=== PATIENT | female | born 1950 | race Caucasian/White ===

== ENCOUNTER → 2016-10-30 | Outpatient (REF) | payer OTHER ==
[~2016-10-30] MED LIST: /GLIP10TAB PO; ANTI12.5 PO; CARD8TAB2 PO; DOXA8TAB PO; FENO145T PO; LEVO150T6 PO; LOSA100T PO; METF1000 PO; TYLE325T5 PO
[2016-10-30 12:07] LABS: ALBUMIN 3.7 GM/DL (3.2-5.2); ALBUMIN/GLOBULIN RATIO 1.23 (1.00-1.93); ALKALINE PHOSPHATASE 56 U/L (45-117); ALT/SGPT 51 U/L (12-78); ANION GAP 9 MEQ/L (8-16); AST/SGOT 30 U/L (15-37); BILIRUBIN,TOTAL 0.3 MG/DL (0.2-1.0); BLOOD UREA NITROGEN 21 MG/DL (7-18); CALCIUM LEVEL 9.5 MG/DL (8.8-10.2); CARBON DIOXIDE LEVEL 28 MEQ/L (21-32); CHLORIDE LEVEL 105 MEQ/L (98-107); CHOLESTEROL LEVEL 198 MG/DL (<200); GLOMERULAR FILTRATION RATE > 60.0 (>45); GLUCOSE, FASTING 106 MG/DL (80-110); POTASSIUM SERUM 4.4 MEQ/L (3.5-5.1); SODIUM LEVEL 142 MEQ/L (136-145); TOTAL PROTEIN 6.7 GM/DL (6.4-8.2); TRIGLYCERIDES LEVEL 255 MG/DL (<150)
== END ==
LOC: M SFHCPLAZ 09:00
PROVIDERS: ATTEND Family Medicine
DX: E11.36 Type 2 diabetes mellitus with diabetic cataract (principal)

== ENCOUNTER → 2017-02-17 | Outpatient (REF) | payer MEDICARE | LOC: M SFHCPLAZ 08:34 | PROVIDERS: ATTEND Family Medicine | DX: E11.9 Type 2 diabetes mellitus without complications (principal) ==

== ENCOUNTER → 2017-04-15 | Outpatient (REF) | payer MEDICARE | LOC: M SFHCWAGY 10:11 | PROVIDERS: ATTEND Nurse Practitioner Family | DX: Z12.4 Encounter for screening for malignant neoplasm of cervix (principal); R87.622 Low grade squamous intraepithelial lesion on cytologic smear of vagina (LGSIL) ==

== ENCOUNTER → 2017-04-15 | Outpatient (CLI) | payer MEDICARE ==
--- NOTE | 2017-04-15 12:56 | REPMRS ---
Patient History The patient states she had a clinical breast exam in 05/01 Patient is postmenopausal and has history of cervical cancer at age 22. Family history of breast cancer in mother at age 50 or over and breast cancer in maternal grandmother at age 50 or over. Digital Woman Screen Mammo: April 15, 2017 - Exam #: [id number] Bilateral MLO and CC view(s) were taken. CV view(s) were taken of the right breast. Technologist: Korin Thompson, Technologist Prior study comparison: October 19, 2015, digital woman screen mammo performed at [facility]. July 31, 2012, digital woman screen mammo performed at [facility] [employer] [facility]. FINDINGS: The breast tissue is almost entirely fat. There has been no change in the appearance of the mammogram from the prior studies. There is no interval development of dominant mass, areas of architectural distortion, or clustered microcalcification typical of malignancy. Large coarse benign appearing calcifications are present. Scattered lymph nodes are seen in the axilla. ASSESSMENT: BI-RADS/ACR category 2 mammogram. Benign finding(s). Recommendation Routine screening mammogram in 1 year (for women over age 40). This mammogram was interpreted with the aid of an FDA-approved computer-aided dectection system. A. Negative x-ray reports should not delay biopsy if a dominant or clinically suspicious mass is present. B. Four to eight percent of cancers are not identified by mammography. C. Adenosis and dense breast may obscure an underlying neoplasm. Electronically Signed By: Damian Aranda MD 04/15/17 1541
== END ==
LOC: M WHC 09:36
PROVIDERS: ATTEND Nurse Practitioner Family
DX: Z12.31 Encounter for screening mammogram for malignant neoplasm of breast (principal); Z78.0 Asymptomatic menopausal state; Z12.4 Encounter for screening for malignant neoplasm of cervix; R87.622 Low grade squamous intraepithelial lesion on cytologic smear of vagina (LGSIL); Z85.41 Personal history of malignant neoplasm of cervix uteri; Z80.3 Family history of malignant neoplasm of breast
CPT/HCPCS: 87624; G0123; G0202

== ENCOUNTER → 2017-04-25 | Outpatient (REF) | payer MEDICARE | LOC: M SFHCWAGY 15:54 | PROVIDERS: ATTEND Nurse Practitioner Women's Health | DX: R87.613 High grade squamous intraepithelial lesion on cytologic smear of cervix (HGSIL) (principal); R87.612 Low grade squamous intraepithelial lesion on cytologic smear of cervix (LGSIL); Z87.898 Personal history of other specified conditions ==

== ENCOUNTER → 2017-05-26 | Outpatient (REF) | payer MEDICARE ==
[2017-05-26 11:55] LABS: BASO % 0.6 % (0.0-1.0); EOS # 0.5 K/mm3 (0.0-0.50); EOS % 5.6 % (0.0-3.0); LARGE UNSTAINED CELL # 0.1 K/mm3 (0.0-0.4); LARGE UNSTAINED CELL % 1.5 % (0.0-4.0); LYMPH # 2.8 K/mm3 (1.5-4.5); LYMPH % 32.6 % (24.0-44.0); MEAN CORPUSCULAR HEMOGLOBIN 30.5 pg (27.0-33.0); MEAN CORPUSCULAR HGB CONC 33.5 g/dl (32.0-36.5); MEAN CORPUSCULAR VOLUME 91.1 fl (80.0-96.0); MONO # 0.3 K/mm3 (0.0-0.8); MONO % 3.9 % (0.0-5.0); NEUTROPHILS # 4.8 K/mm3 (1.8-7.7); NEUTROPHILS % 55.9 % (36.0-66.0); PLATELET COUNT, AUTOMATED 299 k/mm3 (150-450); RED CELL DISTRIBUTION WIDTH 13.2 % (11.5-14.5); WHITE BLOOD COUNT 8.6 K/mm3 (4.0-10.0)
[2017-05-26 12:31] LABS: ALBUMIN 3.8 GM/DL (3.2-5.2); ALBUMIN/GLOBULIN RATIO 1.27 (1.00-1.93); ALKALINE PHOSPHATASE 63 U/L (45-117); ALT/SGPT 59 U/L (12-78); ANION GAP 12 MEQ/L (8-16); AST/SGOT 44 U/L (15-37); BILIRUBIN,TOTAL 0.3 MG/DL (0.2-1.0); BLOOD UREA NITROGEN 19 MG/DL (7-18); CALCIUM LEVEL 9.5 MG/DL (8.8-10.2); CARBON DIOXIDE LEVEL 24 MEQ/L (21-32); CHLORIDE LEVEL 106 MEQ/L (98-107); CREATININE FOR GFR 0.78 MG/DL (0.55-1.02); FREE T4 1.55 NG/DL (0.76-1.46); GLOMERULAR FILTRATION RATE > 60.0 (>45); GLUCOSE, FASTING 86 MG/DL (80-110); POTASSIUM SERUM 4.1 MEQ/L (3.5-5.1); SODIUM LEVEL 142 MEQ/L (136-145); TOTAL PROTEIN 6.8 GM/DL (6.4-8.2)
== END ==
LOC: M SFHCPLAZ 08:58
PROVIDERS: ATTEND Family Medicine
DX: R53.83 Other fatigue (principal); E11.36 Type 2 diabetes mellitus with diabetic cataract

== ENCOUNTER → 2017-05-30 | Outpatient (REF) | payer MEDICARE ==
[2017-05-30 16:39] LABS: ALBUMIN 3.8 GM/DL (3.2-5.2); ALBUMIN/GLOBULIN RATIO 1.23 (1.00-1.93); ALKALINE PHOSPHATASE 65 U/L (45-117); ALT/SGPT 54 U/L (12-78); AST/SGOT 32 U/L (15-37); BILIRUBIN,DIRECT < 0.1 MG/DL (0.0-0.2); BILIRUBIN,TOTAL 0.2 MG/DL (0.2-1.0); FREE T4 1.42 NG/DL (0.76-1.46); TOTAL PROTEIN 6.9 GM/DL (6.4-8.2)
== END ==
LOC: M SFHCPLAZ 12:09
PROVIDERS: ATTEND Family Medicine
DX: R94.6 Abnormal results of thyroid function studies (principal); R74.0 Nonspecific elevation of levels of transaminase and lactic acid dehydrogenase [LDH]

== ENCOUNTER → 2017-10-23 | Outpatient (REF) | payer MEDICARE ==
[2017-10-23 13:07] LABS: ESTIMATED AVERAGE GLUCOSE 194 MG/DL (60-110); HEMOGLOBIN A1c 8.4 %
== END ==
LOC: M SFHCPLAZ 08:55
DX: E11.65 Type 2 diabetes mellitus with hyperglycemia (principal)
CPT/HCPCS: 83036

== ENCOUNTER → 2017-12-30 | Outpatient (REF) | payer MEDICARE ==
[2017-12-30 11:20] LABS: ALBUMIN 3.7 GM/DL (3.2-5.2); ALBUMIN/GLOBULIN RATIO 1.19 (1.00-1.93); ALKALINE PHOSPHATASE 64 U/L (45-117); ALT/SGPT 43 U/L (12-78); ANION GAP 6 MEQ/L (8-16); AST/SGOT 31 U/L (7-37); BILIRUBIN,TOTAL 0.2 MG/DL (0.2-1.0); BLOOD UREA NITROGEN 22 MG/DL (7-18); CALCIUM LEVEL 9.2 MG/DL (8.8-10.2); CARBON DIOXIDE LEVEL 26 MEQ/L (21-32); CHLORIDE LEVEL 108 MEQ/L (98-107); CREATININE FOR GFR 0.78 MG/DL (0.55-1.30); GLOMERULAR FILTRATION RATE > 60.0 (>45); GLUCOSE, FASTING 125 MG/DL (70-100); POTASSIUM SERUM 4.3 MEQ/L (3.5-5.1); SODIUM LEVEL 140 MEQ/L (136-145); TOTAL PROTEIN 6.8 GM/DL (6.4-8.2)
[2017-12-30 11:28] LABS: ESTIMATED AVERAGE GLUCOSE 180 MG/DL (60-110); HEMOGLOBIN A1c 7.9 %
[2017-12-30 11:58] LABS: MALB URINE SIEMENS 5.6 MG/L; MAU/CREAT RATIO 15.1 MCG/MG (0.0-30.0)
== END ==
LOC: M SFHCPLAZ 09:18
DX: I10 Essential (primary) hypertension (principal); E11.65 Type 2 diabetes mellitus with hyperglycemia
CPT/HCPCS: 80053

== ENCOUNTER → 2018-02-02 | Outpatient (REF) | payer MEDICARE ==
[2018-02-02 20:39] LABS: ANION GAP 10 MEQ/L (8-16); BLOOD UREA NITROGEN 28 MG/DL (7-18); CALCIUM LEVEL 9.7 MG/DL (8.8-10.2); CARBON DIOXIDE LEVEL 26 MEQ/L (21-32); CHLORIDE LEVEL 106 MEQ/L (98-107); CREATININE FOR GFR 1.27 MG/DL (0.55-1.30); FERRITIN 71 NG/ML (8-252); GLOMERULAR FILTRATION RATE 44.8 (>45); GLUCOSE, FASTING 122 MG/DL (70-100); IRON (FE) 89 UG/DL (50-170); PERCENT SATURATION 23.6 % (13.2-45.0); POTASSIUM SERUM 4.1 MEQ/L (3.5-5.1); SODIUM LEVEL 142 MEQ/L (136-145); TOTAL IRON BINDING CAPACITY 377 UG/DL (250-450)
== END ==
LOC: M SFHCPLAZ 15:49
DX: R25.2 Cramp and spasm (principal); H04.123 Dry eye syndrome of bilateral lacrimal glands; Z79.899 Other long term (current) drug therapy; E11.65 Type 2 diabetes mellitus with hyperglycemia; I10 Essential (primary) hypertension; F17.210 Nicotine dependence, cigarettes, uncomplicated
CPT/HCPCS: 83550

== ENCOUNTER → 2018-04-14 | Outpatient (REF) | payer MEDICARE ==
[2018-04-14 12:04] LABS: ESTIMATED AVERAGE GLUCOSE 151 MG/DL (60-110); HEMOGLOBIN A1c 6.9 %
== END ==
LOC: M SFHCPLAZ 09:22
DX: E11.36 Type 2 diabetes mellitus with diabetic cataract (principal)
CPT/HCPCS: 83036

== ENCOUNTER → 2018-07-21 | Outpatient (REF) | payer MEDICARE | LOC: M SFHCWAGY 10:51 | DX: Z12.4 Encounter for screening for malignant neoplasm of cervix (principal); R87.5 Abnormal microbiological findings in specimens from female genital organs | CPT/HCPCS: G0123 ==

== ENCOUNTER → 2018-07-21 | Outpatient (CLI) | payer MEDICARE | LOC: M WHC 10:32 | DX: Z12.31 Encounter for screening mammogram for malignant neoplasm of breast (principal); Z78.0 Asymptomatic menopausal state; Z85.41 Personal history of malignant neoplasm of cervix uteri; Z80.3 Family history of malignant neoplasm of breast | CPT/HCPCS: 77067 ==

== ENCOUNTER → 2018-08-03 | Outpatient (REF) | payer MEDICARE ==
[2018-08-03 12:15] LABS: CHOLESTEROL LEVEL 194 MG/DL (<200); CHOLESTEROL RISK RATIO 3.403 (<5); HDL CHOLESTEROL 57 MG/DL (>40); LDL CHOLESTEROL 88 MG/DL (<100); NON-HDL-C 137 MG/DL; THYROID STIMULATING HORMONE 0.964 uIU/ML (0.358-3.740); TRIGLYCERIDES LEVEL 247 MG/DL (<150)
[2018-08-03 12:16] LABS: ESTIMATED AVERAGE GLUCOSE 134 MG/DL (60-110); HEMOGLOBIN A1c 6.3 %
== END ==
LOC: M SFHCPLAZ 09:09
DX: E11.65 Type 2 diabetes mellitus with hyperglycemia (principal); E03.9 Hypothyroidism, unspecified
CPT/HCPCS: 84443

== ENCOUNTER → 2019-05-26 | Outpatient (REF) | payer MEDICARE ==
[2019-05-26 11:55] LABS: HEMOGLOBIN A1c 6.1 %
[2019-05-26 12:10] LABS: CHOLESTEROL RISK RATIO 2.887 (<5); FREE T4 1.45 NG/DL (0.76-1.46); THYROID STIMULATING HORMONE 2.16 uIU/ML (0.358-3.740)
== END ==
LOC: M SFHCPLAZ 09:15
PROVIDERS: ATTEND Family Medicine
DX: E11.9 Type 2 diabetes mellitus without complications (principal); E78.2 Mixed hyperlipidemia; E03.9 Hypothyroidism, unspecified

== ENCOUNTER → 2019-05-26 | Outpatient (CLI) | payer MEDICARE ==
--- NOTE | 2019-05-26 11:53 | REP ---
LEFT SHOULDER SERIES: Four views. HISTORY: Supraspinatus strain. No comparison radiographs. FINDINGS: The left glenohumeral and acromioclavicular joints are normally aligned. There is osteoarthritic narrowing and hypertrophy at the AC joint. No erosive changes seen. There is mild diffuse osteopenia. Periarticular soft tissues are unremarkable. IMPRESSION: AC joint osteoarthritic spurring. Otherwise negative. Electronically Signed by Umesh Saeed MD 05/26/2019 03:25 P
== END ==
LOC: M LRY 09:23
PROVIDERS: ATTEND Student in an Organized Health Care Education/Training Program
DX: S46.819A Strain of other muscles, fascia and tendons at shoulder and upper arm level, unspecified arm, initial encounter (principal); X58.XXXA Exposure to other specified factors, initial encounter; Y92.9 Unspecified place or not applicable; M19.012 Primary osteoarthritis, left shoulder

== ENCOUNTER → 2019-07-22 | Outpatient (CLI) | payer MEDICARE ==
--- NOTE | 2019-07-22 12:08 | REPMRS ---
Patient History The patient states she had a clinical breast exam in 07/2019. Family history of breast cancer at age 50 or over in mother, breast cancer at age 50 or over in maternal grandmother. No Hormone Replacement Therapy Digital Woman Screen Mammo: July 22, 2019 - Exam #: [id number] Bilateral CC and MLO view(s) were taken. Technologist: Korin Thompson, Technologist Prior study comparison: July 21, 2018, bilateral digital woman screen mammo performed at [facility]. April 15, 2017, digital woman screen mammo performed at [facility]. October 19, 2015, digital woman screen mammo performed at [facility]. FINDINGS: There are scattered fibroglandular densities. There has been no change in the appearance of the mammogram from the prior studies. There is a mild amount of scattered fibroglandular density which is fairly symmetric. There is no interval development of dominant mass, architectural distortion, or grouped microcalcification suggestive of malignancy. 3-D tomosynthesis shows no additional findings. Assessment: BI-RADS/ACR category 1 mammogram. Negative Mammogram. Recommendation Routine screening mammogram of both breasts in 1 year (for women over age 40). This patient's Lifetime Breast Cancer Risk is estimated at 13.5 %. This mammogram was interpreted with the aid of an FDA-approved computer-aided dectection system. Electronically Signed By: Suleiman Saeed MD 07/22/19 [id number]
== END ==
LOC: M WHC 10:26
PROVIDERS: ATTEND Nurse Practitioner Family
DX: Z12.31 Encounter for screening mammogram for malignant neoplasm of breast (principal); Z80.3 Family history of malignant neoplasm of breast; Z91.89 Other specified personal risk factors, not elsewhere classified
CPT/HCPCS: 77063; 77067; G0123

== ENCOUNTER → 2019-07-22 | Outpatient (REF) | payer MEDICARE | LOC: M SFHCWAGY 10:43 | PROVIDERS: ATTEND Nurse Practitioner Family | DX: Z12.4 Encounter for screening for malignant neoplasm of cervix (principal); Z77.9 Other contact with and (suspected) exposures hazardous to health; R87.5 Abnormal microbiological findings in specimens from female genital organs ==

== ENCOUNTER → 2019-11-29 | Outpatient (REF) | payer MEDICARE ==
[2019-11-29 11:43] LABS: FREE T4 1.54 NG/DL (0.76-1.46); THYROID STIMULATING HORMONE 3.21 uIU/ML (0.358-3.740)
[2019-11-29 11:49] LABS: HEMOGLOBIN A1c 6.9 %
[2019-11-29 16:59] LABS: CREATININE, URINE 93.7 MG/DL; MALB URINE SIEMENS 8.7 MG/L; MAU/CREAT RATIO 9.2 MCG/MG (0.0-30.0)
== END ==
LOC: M SFHCLERA 08:34
PROVIDERS: ATTEND Student in an Organized Health Care Education/Training Program
DX: E03.9 Hypothyroidism, unspecified (principal); E11.9 Type 2 diabetes mellitus without complications

== ENCOUNTER → 2020-03-30 | Outpatient (REF) | payer MEDICARE ==
[2020-03-30 13:06] LABS: HEMATOCRIT 41.1 % (36.0-47.0); HEMOGLOBIN 13.3 g/dl (12.0-15.5); MEAN CORPUSCULAR HEMOGLOBIN 30.2 pg (27.0-33.0); MEAN CORPUSCULAR HGB CONC 32.4 g/dl (32.0-36.5); MEAN CORPUSCULAR VOLUME 93.2 fl (80.0-96.0); PLATELET COUNT, AUTOMATED 245 10^3/uL (150-450); RED BLOOD COUNT 4.41 10^6/uL (4.00-5.40); WHITE BLOOD COUNT 7.6 10^3/uL (4.0-10.0)
[2020-03-30 13:56] LABS: ALBUMIN 3.8 GM/DL (3.2-5.2); ALT/SGPT 47 U/L (12-78); BILIRUBIN,TOTAL 0.3 MG/DL (0.2-1.0); BLOOD UREA NITROGEN 18 MG/DL (7-18); CALCIUM LEVEL 9.6 MG/DL (8.8-10.2); CARBON DIOXIDE LEVEL 24 MEQ/L (21-32); CHLORIDE LEVEL 106 MEQ/L (98-107); CREATININE FOR GFR 0.87 MG/DL (0.55-1.30); FOLATE > 24.0 NG/ML; GLOMERULAR FILTRATION RATE > 60.0 (>45); GLUCOSE, FASTING 110 MG/DL (70-100); MAGNESIUM LEVEL 1.9 MG/DL (1.8-2.4); POTASSIUM SERUM 4.8 MEQ/L (3.5-5.1); SODIUM LEVEL 138 MEQ/L (136-145); TOTAL PROTEIN 6.7 GM/DL (6.4-8.2); VITAMIN B12 LEVEL 418 PG/ML
[2020-03-30 15:54] LABS: HEMOGLOBIN A1c 6.9 %
== END ==
LOC: M SFHCPLAZ 09:49
PROVIDERS: ATTEND Family Medicine
DX: E11.9 Type 2 diabetes mellitus without complications (principal); M62.838 Other muscle spasm

== ENCOUNTER → 2020-07-24 | Outpatient (REF) | payer MEDICARE ==
[2020-07-24 18:36] LABS: HEMOGLOBIN A1c 6.8 %
== END ==
LOC: M SFHCPLAZ 11:46
PROVIDERS: ATTEND Family Medicine
DX: E11.9 Type 2 diabetes mellitus without complications (principal)

== ENCOUNTER → 2020-07-25 | Outpatient (REF) | payer MEDICARE ==
[2020-07-25 14:23] LABS: CREATININE, URINE 81.2 MG/DL; MALB URINE SIEMENS 20.4 MG/L; MAU/CREAT RATIO 25.1 MCG/MG (0.0-30.0)
== END ==
LOC: M SFHCPLAZ 12:50
PROVIDERS: ATTEND Student in an Organized Health Care Education/Training Program
DX: E11.9 Type 2 diabetes mellitus without complications (principal)

== ENCOUNTER → 2020-07-25 | Outpatient (CLI) | payer MEDICARE ==
--- NOTE | 2020-07-25 12:19 | REPMRS ---
Patient History The patient states she had a clinical breast exam in July 2020. Family history of breast cancer at age 50 or over in mother, breast cancer at age 50 or over in maternal grandmother. No Hormone Replacement Therapy Digital Woman Screen Mammo: July 25, 2020 - Exam #: [id number] Bilateral CC and MLO view(s) were taken. Technologist: Janice Davis Technologist Prior study comparison: July 22, 2019, bilateral digital woman screen mammo performed at [facility]. July 21, 2018, bilateral digital woman screen mammo performed at [facility]. April 15, 2017, digital woman screen mammo performed at [facility]. FINDINGS: The breast tissue is almost entirely fat. The Volpara volumetric breast density category is: A. There has been no change in the appearance of the mammogram from the prior studies. There is no interval development of dominant mass, architectural distortion, or grouped microcalcification typical of malignancy. 3-D tomosynthesis shows no additional findings. Assessment: BI-RADS/ACR category 1 mammogram. Negative Mammogram. Recommendation Routine screening mammogram of both breasts in 1 year (for women over age 40). This patient's Lifetime Breast Cancer RIsk is estimated at 12.8 %. This mammogram was interpreted with the aid of an FDA-approved computer-aided dectection system. Electronically Signed By: Suleiman Saeed MD 07/25/20 2183
== END ==
LOC: M WHC 10:16
PROVIDERS: ATTEND Nurse Practitioner Family
DX: Z12.31 Encounter for screening mammogram for malignant neoplasm of breast (principal); Z80.3 Family history of malignant neoplasm of breast

== ENCOUNTER → 2020-12-19 | Outpatient (REF) | payer MEDICARE | LOC: M SFHCPLAZ 14:55 | PROVIDERS: ATTEND Family Medicine | DX: E11.36 Type 2 diabetes mellitus with diabetic cataract (principal); E03.9 Hypothyroidism, unspecified ==

== ENCOUNTER 2021-02-15 22:29 | Emergency (ER) | payer MEDICARE ==
[~2021-02-15] VITALS: Ht 157.5 cm; Wt 114.5 kg
--- NOTE | 2021-02-15 23:32 | REPVR ---
PROCEDURE INFORMATION: Exam: CT Head Without Contrast Exam date and time: 02/15/2021 10:45 PM Age: 70 years old Clinical indication: Dizziness; Additional info: Neuro symptoms TECHNIQUE: Imaging protocol: Computed tomography of the head without contrast. Radiation optimization: All CT scans at this facility use at least one of these dose optimization techniques: automated exposure control; mA and/or kV adjustment per patient size (includes targeted exams where dose is matched to clinical indication); or iterative reconstruction. COMPARISON: No relevant prior studies available. FINDINGS: Brain: There is no evidence of intracranial bleed. Cerebral ventricles: Normal appearing ventricles. Paranasal sinuses: Clear paranasal sinuses. Mastoid air cells: Clear mastoid air cells. Bones/joints: There is no evidence of fracture. Soft tissues: There is no evidence of soft tissue swelling. IMPRESSION: Normal appearing CT scan of the brain. Electronically signed by: Erasmo Phillips On 02/15/2021 23:32:27 PM
[2021-02-15 23:59] LABS: INR 0.92; PROTHROMBIN TIME 12.5 SECONDS (12.5-14.3)
[2021-02-16] LABS: PARTIAL THROMBOPLASTIN TIME 30.1 SECONDS (24.2-38.5)
[2021-02-16 00:11] LABS: BASO % 0.4 % (0.0-1.0); EOS # 0.2 10^3/uL (0.0-0.5); HEMOGLOBIN 11.9 g/dl (12.0-15.5); LYMPH # 2.3 10^3/uL (1.5-5.0); LYMPH % 31.2 % (24.0-44.0); MEAN CORPUSCULAR HEMOGLOBIN 29.5 pg (27.0-33.0); MEAN CORPUSCULAR HGB CONC 32.2 g/dl (32.0-36.5); MEAN CORPUSCULAR VOLUME 91.6 fl (80.0-96.0); MONO # 0.5 10^3/uL (0.0-0.8); MONO % 7.1 % (2.0-8.0); NEUTROPHILS # 4.3 10^3/uL (1.5-8.5); NEUTROPHILS % 58.2 % (36.0-66.0); PLATELET COUNT, AUTOMATED 343 10^3/uL (150-450); RED BLOOD COUNT 4.04 10^6/uL (4.00-5.40); WHITE BLOOD COUNT 7.4 10^3/uL (4.0-10.0)
[2021-02-16 00:18] LABS: BLOOD UREA NITROGEN 14 MG/DL (7-18); CALCIUM LEVEL 8.8 MG/DL (8.8-10.2); CARBON DIOXIDE LEVEL 24 MEQ/L (21-32); CHLORIDE LEVEL 108 MEQ/L (98-107); CK-MB VALUE MASS < 1.0 NG/ML (<3.6); CPK CREATINE PHOSPHOKINASE 70 U/L (26-192); GLOMERULAR FILTRATION RATE > 60.0 (>45); GLUCOSE, FASTING 188 MG/DL (70-100); MB/CK RELATIVE INDEX 1.43 (< OR =4); POTASSIUM SERUM 3.9 MEQ/L (3.5-5.1); SODIUM LEVEL 139 MEQ/L (136-145); TROPONIN I < 0.02 NG/ML (< 0.10)
[2021-02-16 01:00] VITALS: BP 117/68
[2021-02-16] MEDS ORDERED: valACYclovir HCL 500 MG TAB PO ONE (01:15)
[2021-02-16] MEDS ORDERED: predniSONE 20 MG TAB PO ONE (01:15)
[2021-02-16] MEDS ORDERED: TRUL0.5I (01:22)
[2021-02-16] MEDS ORDERED: LEVO175T2 (01:22)
[2021-02-16] MEDS ORDERED: CARV3.12 (01:22)
[2021-02-16] MEDS ORDERED: FENO160T10 (01:22)
[2021-02-16] MEDS ORDERED: OMEG1CAP85 (01:22)
[2021-02-16] MEDS ORDERED: AMLO1TAB25 (01:22)
[2021-02-16] MEDS ORDERED: METF500T13 (01:22)
[2021-02-16] MEDS ORDERED: ASPI81CH33 PO (01:22)
[2021-02-16] MEDS ORDERED: ZETI10TA16 (01:22)
[2021-02-16] MEDS ORDERED: CALC1TAB30 PO (01:22)
[2021-02-16] MEDS ORDERED: LANTINJ4 (01:22)
[2021-02-16] MEDS ORDERED: PRED20TA PO (01:24)
[2021-02-16] MEDS ORDERED: VALA1TAB5 PO (01:24)
[2021-02-16] MEDS ORDERED: TORSEMIDE 20 MG TAB PO SCH (09:00)
--- NOTE | 2021-02-16 09:29 | ECGEPIP ---
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
[2021-02-16] MEDS ORDERED: TORSEMIDE 10 MG TABLET PO SCH (21:00)
== END 2021-02-16 01:44 | disposition home or self-care (01) ==
LOC: M ED 22:29
DX: G51.0 Bell's palsy (principal); E11.9 Type 2 diabetes mellitus without complications; I10 Essential (primary) hypertension; E78.5 Hyperlipidemia, unspecified; E03.9 Hypothyroidism, unspecified; Z79.899 Other long term (current) drug therapy; Z79.82 Long term (current) use of aspirin; Z79.4 Long term (current) use of insulin; Z88.0 Allergy status to penicillin; Z88.1 Allergy status to other antibiotic agents; Z88.2 Allergy status to sulfonamides; F17.210 Nicotine dependence, cigarettes, uncomplicated
CPT/HCPCS: 36415; 70450; 80048; 82550; 82553; 84484; 85025; 85610; 85730; 93005; 93041; 94760; 99285; J7512

== ENCOUNTER → 2021-02-19 | Outpatient (REF) | payer MEDICARE ==
[~2021-02-19] MED LIST changes: +AMLO1TAB25; +ASPI81CH33 PO; +CALC1TAB30 PO; +CARV3.12; +FENO160T10; +LANTINJ4; +LEVO175T2; +METF500T13; +OMEG1CAP85; +PRED20TA PO; +TRUL0.5I; +VALA1TAB5 PO; +ZETI10TA16
[2021-02-19 15:47] LABS: HEMOGLOBIN A1c 7.2 %
[2021-02-19 16:00] LABS: FREE T4 1.61 NG/DL (0.76-1.46); THYROID STIMULATING HORMONE 0.589 uIU/ML (0.358-3.740)
== END ==
LOC: M SFHCPLAZ 12:15
PROVIDERS: ATTEND Family Medicine
DX: S80.862S Insect bite (nonvenomous), left lower leg, sequela (principal); E11.36 Type 2 diabetes mellitus with diabetic cataract; E03.9 Hypothyroidism, unspecified

== ENCOUNTER → 2021-03-30 | Outpatient (REF) | payer MEDICARE ==
[2021-03-30 14:07] LABS: CREATININE, URINE 30.4 MG/DL; MALB URINE SIEMENS < 5.0 MG/L; MAU/CREAT RATIO 16.4 MCG/MG (0.0-30.0)
== END ==
LOC: M SFHCPLAZ 12:40
PROVIDERS: ATTEND Student in an Organized Health Care Education/Training Program
DX: E11.36 Type 2 diabetes mellitus with diabetic cataract (principal)

== ENCOUNTER → 2021-07-26 | Outpatient (CLI) | payer MEDICARE ==
[2021-07-26 11:41] LABS: BLOOD UREA NITROGEN 26 MG/DL (7-18); CALCIUM LEVEL 9.9 MG/DL (8.8-10.2); CARBON DIOXIDE LEVEL 23 MEQ/L (21-32); CHLORIDE LEVEL 110 MEQ/L (98-107); CHOLESTEROL LEVEL 204 MG/DL (<200); CHOLESTEROL RISK RATIO 3.777 (<5); GLOMERULAR FILTRATION RATE > 60.0 (>45); GLUCOSE, FASTING 141 MG/DL (70-100); HDL CHOLESTEROL 54 MG/DL (>40); NON-HDL-C 150 MG/DL; POTASSIUM SERUM 4.5 MEQ/L (3.5-5.1); SODIUM LEVEL 141 MEQ/L (136-145); TRIGLYCERIDES LEVEL 477 MG/DL (<150)
[2021-07-26 12:03] LABS: HEMOGLOBIN A1c 6.8 %
== END ==
LOC: M PLALAB 08:11
PROVIDERS: ATTEND Student in an Organized Health Care Education/Training Program
DX: E78.2 Mixed hyperlipidemia (principal); E11.9 Type 2 diabetes mellitus without complications

== ENCOUNTER → 2021-09-13 | Outpatient (CLI) | payer MEDICARE ==
--- NOTE | 2021-09-13 13:34 | REPMRS ---
Patient History The patient states she has not had a clinical breast exam in over a year. Family history of breast cancer at age 50 or over in mother, breast cancer at age 50 or over in maternal grandmother. No Hormone Replacement Therapy Tomosynthesis is performed. Volpara breast density is a. [facility] lifetime risk of breast cancer 12.1%. Patient states no breast complaints today. Patient has signed MRS History Sheet. Digital Woman Screen Mammo: September 13, 2021 - Exam #: [id number] Bilateral CC and MLO view(s) were taken. Technologist: Korin Thompson, Technologist Prior study comparison: July 25, 2020, bilateral digital woman screen mammo performed at [facility]. July 22, 2019, bilateral digital woman screen mammo performed at [facility]. FINDINGS: There are scattered fibroglandular densities. There has been no change in the appearance of the mammogram from the prior studies. There is a mild amount of residual fibroglandular tissue which is fairly symmetric. There is no interval development of dominant mass, architectural distortion, or clustered microcalcification suggestive of malignancy. Assessment: BI-RADS/ACR category 1 mammogram. Negative Mammogram. Recommendation Routine screening mammogram in 1 year (for women over age 40). This mammogram was interpreted with the aid of an FDA-approved computer-aided dectection system. Electronically Signed By: Karlos Guidry MD 09/13/21 [id number]
== END ==
LOC: M WHC 12:13
PROVIDERS: ATTEND Student in an Organized Health Care Education/Training Program
DX: Z12.31 Encounter for screening mammogram for malignant neoplasm of breast (principal)

== ENCOUNTER → 2022-06-21 | Outpatient (CLI) | payer MEDICARE ==
[2022-06-21 10:48] LABS: BLOOD UREA NITROGEN 16 MG/DL (7-18); CALCIUM LEVEL 9.5 MG/DL (8.8-10.2); CARBON DIOXIDE LEVEL 24 MEQ/L (21-32); CHLORIDE LEVEL 106 MEQ/L (98-107); CREATININE FOR GFR 0.74 MG/DL (0.55-1.30); GLOMERULAR FILTRATION RATE > 60.0 (>39); GLUCOSE, FASTING 149 MG/DL (70-100); POTASSIUM SERUM 4.4 MEQ/L (3.5-5.1); SODIUM LEVEL 136 MEQ/L (136-145)
[2022-06-21 10:51] LABS: HEMOGLOBIN A1c 7.5 %
== END ==
LOC: M PLALAB 08:25
PROVIDERS: ATTEND Student in an Organized Health Care Education/Training Program
DX: E11.9 Type 2 diabetes mellitus without complications (principal)

== ENCOUNTER → 2022-07-01 | Outpatient (CLI) | payer MEDICARE ==
[2022-07-01 13:47] LABS: ALBUMIN 3.7 GM/DL (3.2-5.2); ALT/SGPT 61 U/L (12-78); BILIRUBIN,TOTAL 0.2 MG/DL (0.2-1.0); BLOOD UREA NITROGEN 17 MG/DL (7-18); CALCIUM LEVEL 9.6 MG/DL (8.8-10.2); CARBON DIOXIDE LEVEL 25 MEQ/L (21-32); CHLORIDE LEVEL 110 MEQ/L (98-107); COMPLEMENT C3 158 MG/DL (90-180); COMPLEMENT C4 30 MG/DL (10-40); CREATININE FOR GFR 0.74 MG/DL (0.55-1.30); GLOMERULAR FILTRATION RATE > 60.0 (>39); GLUCOSE, FASTING 150 MG/DL (70-100); POTASSIUM SERUM 4.1 MEQ/L (3.5-5.1); SODIUM LEVEL 140 MEQ/L (136-145); TOTAL PROTEIN 6.7 GM/DL (6.4-8.2)
[2022-07-01 14:28] LABS: THYROID PEROXIDASE ANTIBODY 465.1 U/ML (<60.0)
[2022-07-01 15:07] LABS: HEPATITIS C VIRUS ABY INDEX < 0.0 INDEX (<0.8)
[2022-07-02 19:08] LABS: ANA (HEP2) Negative (.)
== END ==
LOC: M PLALAB 09:21
PROVIDERS: ATTEND Student in an Organized Health Care Education/Training Program
DX: L92.0 Granuloma annulare (principal)

== ENCOUNTER → 2022-07-04 | Outpatient (CLI) | payer MEDICARE ==
[2022-07-04 14:08] LABS: BASO % 0.5 % (0.0-1.0); EOS # 0.3 10^3/uL (0.0-0.5); EOS % 3.4 % (0.0-3.0); HEMATOCRIT 42.2 % (36.0-47.0); HEMOGLOBIN 13.6 g/dl (12.0-15.5); LYMPH # 2.4 10^3/uL (1.5-5.0); MEAN CORPUSCULAR HEMOGLOBIN 29.8 pg (27.0-33.0); MEAN CORPUSCULAR HGB CONC 32.2 g/dl (32.0-36.5); MEAN CORPUSCULAR VOLUME 92.5 fl (80.0-96.0); MONO # 0.5 10^3/uL (0.0-0.8); NEUTROPHILS # 4.4 10^3/uL (1.5-8.5); NEUTROPHILS % 57.6 % (36.0-66.0); PLATELET COUNT, AUTOMATED 279 10^3/uL (150-450); RED BLOOD COUNT 4.56 10^6/uL (4.00-5.40); WHITE BLOOD COUNT 7.6 10^3/uL (4.0-10.0)
[2022-07-04 14:33] LABS: ERYTHROCYTE SEDIMENTATION RATE 17 mm/hr (0-30)
[2022-07-04 15:13] LABS: C REACTIVE PROTEIN QUANTITATIV 0.47 MG/DL (0.00-0.30); FREE T4 1.36 NG/DL (0.76-1.46); THYROID STIMULATING HORMONE 1.56 uIU/ML (0.358-3.740)
[2022-07-05 18:07] LABS: ANGIOTENSIN 1 CONVERTING ENZYM 68 U/L (14-82)
== END ==
LOC: M PLALAB 10:17
PROVIDERS: ATTEND Family Medicine
DX: L30.9 Dermatitis, unspecified (principal); R21 Rash and other nonspecific skin eruption

== ENCOUNTER → 2023-02-05 | Outpatient (CLI) | payer MEDICARE ==
[2023-02-05 15:16] LABS: C REACTIVE PROTEIN QUANTITATIV < 0.40 MG/DL (<1.0)
[2023-02-05 15:18] LABS: ALBUMIN 3.8 G/DL (3.2-5.2); ALKALINE PHOSPHATASE 92 U/L (46-116); ALT/SGPT 57 U/L (7.0-40); AST/SGOT 47 U/L (<34); BILIRUBIN,TOTAL 0.3 MG/DL (0.3-1.2); BLOOD UREA NITROGEN 19 MG/DL (9-23); CALCIUM LEVEL 9.6 MG/DL (8.3-10.6); CARBON DIOXIDE LEVEL 25 MMOL/L (20-31); CHLORIDE LEVEL 108 MMOL/L (98-107); CHOLESTEROL LEVEL 241 MG/DL (<200); CHOLESTEROL RISK RATIO 3.69 (<5); CREATININE FOR GFR 0.63 MG/DL (0.55-1.30); GLOMERULAR FILTRATION RATE > 60.0 (>39); GLUCOSE, FASTING 91 MG/DL (74-106); HDL CHOLESTEROL 65.2 MG/DL (>40); LDL CHOLESTEROL 117.6 MG/DL (<100); NON-HDL-C 175.8 MG/DL; POTASSIUM SERUM 4.3 MMOL/L (3.5-5.1); SODIUM LEVEL 137 MMOL/L (136-145); TOTAL PROTEIN 6.7 G/DL (5.7-8.2); TRIGLYCERIDES LEVEL 291 MG/DL (<150)
[2023-02-05 15:23] LABS: THYROID STIMULATING HORMONE 5.098 uIU/ML (0.55-4.78)
[2023-02-05 15:27] LABS: BASO # 0.1 10^3/uL (0.0-0.2); BASO % 0.6 % (0.0-1.0); EOS # 0.3 10^3/uL (0.0-0.5); EOS % 2.9 % (0.0-3.0); HEMATOCRIT 42.8 % (36.0-47.0); HEMOGLOBIN 14.2 g/dl (12.0-15.5); LYMPH # 2.8 10^3/uL (1.5-5.0); LYMPH % 31.4 % (24.0-44.0); MEAN CORPUSCULAR HEMOGLOBIN 30.1 pg (27.0-33.0); MEAN CORPUSCULAR HGB CONC 33.2 g/dl (32.0-36.5); MEAN CORPUSCULAR VOLUME 90.9 fl (80.0-96.0); MONO # 0.6 10^3/uL (0.0-0.8); MONO % 6.2 % (2.0-8.0); NEUTROPHILS # 5.2 10^3/uL (1.5-8.5); NEUTROPHILS % 58.7 % (36.0-66.0); PLATELET COUNT, AUTOMATED 248 10^3/uL (150-450); RED BLOOD COUNT 4.71 10^6/uL (4.00-5.40); WHITE BLOOD COUNT 8.9 10^3/uL (4.0-10.0)
[2023-02-05 15:45] LABS: ERYTHROCYTE SEDIMENTATION RATE 22 mm/hr (0-30)
[2023-02-05 15:52] LABS: HEMOGLOBIN A1c 7.7 % (4.0-6.0)
== END ==
LOC: M PLALAB 10:16
PROVIDERS: ATTEND Student in an Organized Health Care Education/Training Program
DX: E06.3 Autoimmune thyroiditis (principal); E11.65 Type 2 diabetes mellitus with hyperglycemia; E78.2 Mixed hyperlipidemia

== ENCOUNTER → 2023-02-07 | Outpatient (REF) | payer MEDICARE ==
[2023-02-07 13:41] LABS: CREATININE, URINE 43.8 MG/DL; MAU/CREAT RATIO 9.1 MCG/MG (0.0-30.0)
== END ==
LOC: M SFHCPLAZ 12:43
PROVIDERS: ATTEND Student in an Organized Health Care Education/Training Program
DX: E11.65 Type 2 diabetes mellitus with hyperglycemia (principal); E06.3 Autoimmune thyroiditis; E78.2 Mixed hyperlipidemia

== ENCOUNTER → 2023-03-11 | Outpatient (REF) | payer MEDICARE | LOC: M SFHCPLAZ 09:27 | PROVIDERS: ATTEND Family Medicine | DX: Z53.9 Procedure and treatment not carried out, unspecified reason (principal) ==

== ENCOUNTER → 2023-05-21 | Outpatient (CLI) | payer MEDICARE ==
[~2023-05-21] MED LIST changes: +EZET10TA58; -ZETI10TA16
[2023-05-21 10:45] LABS: ALBUMIN 3.6 G/DL (3.2-5.2); ALKALINE PHOSPHATASE 83 U/L (46-116); ALT/SGPT 56 U/L (7.0-40); AST/SGOT 50 U/L (<34); BILIRUBIN,TOTAL 0.3 MG/DL (0.3-1.2); BLOOD UREA NITROGEN 21 MG/DL (9-23); CARBON DIOXIDE LEVEL 28 MMOL/L (20-31); CHLORIDE LEVEL 107 MMOL/L (98-107); CREATININE FOR GFR 0.71 MG/DL (0.55-1.30); GLOMERULAR FILTRATION RATE > 60.0 (>39); GLUCOSE, FASTING 125 MG/DL (74-106); POTASSIUM SERUM 4.9 MMOL/L (3.5-5.1); SODIUM LEVEL 140 MMOL/L (136-145); TOTAL PROTEIN 6.5 G/DL (5.7-8.2)
[2023-05-21 11:13] LABS: HEMOGLOBIN A1c 7.1 % (4.0-6.0)
== END ==
LOC: M PLALAB 07:36
PROVIDERS: ATTEND Student in an Organized Health Care Education/Training Program
DX: E11.9 Type 2 diabetes mellitus without complications (principal)

== ENCOUNTER → 2023-08-13 | Outpatient (CLI) | payer MEDICARE | LOC: M WHC 10:14 | PROVIDERS: ATTEND Student in an Organized Health Care Education/Training Program | DX: Z13.820 Encounter for screening for osteoporosis (principal); M85.88 Other specified disorders of bone density and structure, other site ==

== ENCOUNTER → 2023-11-17 | Outpatient (CLI) | payer OTHER | LOC: M RAD 10:20 | PROVIDERS: ATTEND Student in an Organized Health Care Education/Training Program | DX: Z12.2 Encounter for screening for malignant neoplasm of respiratory organs (principal); F17.210 Nicotine dependence, cigarettes, uncomplicated ==

== ENCOUNTER → 2024-01-02 | Outpatient (CLI) | payer OTHER ==
[2024-01-02 13:43] LABS: BASO % 0.5 % (0.0-1.0); EOS # 0.2 10^3/uL (0.0-0.5); EOS % 2.1 % (0.0-3.0); HEMATOCRIT 45.4 % (36.0-47.0); HEMOGLOBIN 14.9 g/dl (12.0-15.5); LYMPH # 2.5 10^3/uL (1.5-5.0); LYMPH % 29.4 % (24.0-44.0); MEAN CORPUSCULAR HEMOGLOBIN 30.3 pg (27.0-33.0); MEAN CORPUSCULAR HGB CONC 32.8 g/dl (32.0-36.5); MEAN CORPUSCULAR VOLUME 92.3 fl (80.0-96.0); MONO # 0.6 10^3/uL (0.0-0.8); MONO % 6.9 % (2.0-8.0); NEUTROPHILS # 5.1 10^3/uL (1.5-8.5); NEUTROPHILS % 60.9 % (36.0-66.0); PLATELET COUNT, AUTOMATED 220 10^3/uL (150-450); RED BLOOD COUNT 4.92 10^6/uL (4.00-5.40); WHITE BLOOD COUNT 8.4 10^3/uL (4.0-10.0)
[2024-01-02 14:38] LABS: CREATININE, URINE 77.2 MG/DL; MAU/CREAT RATIO 6.4 MCG/MG (0.0-30.0)
[2024-01-02 14:53] LABS: HEMOGLOBIN A1c 6.7 % (4.0-6.0)
[2024-01-02 15:08] LABS: ALBUMIN 3.3 G/DL (3.2-5.2); ALKALINE PHOSPHATASE 128 U/L (46-116); ALT/SGPT 46 U/L (7.0-40); AST/SGOT 43 U/L (<34); BILIRUBIN,TOTAL 0.4 MG/DL (0.3-1.2); BLOOD UREA NITROGEN 16 MG/DL (9-23); CALCIUM LEVEL 9.8 MG/DL (8.3-10.6); CARBON DIOXIDE LEVEL 28 MMOL/L (20-31); CHLORIDE LEVEL 106 MMOL/L (98-107); CHOLESTEROL LEVEL 246 MG/DL (<200); CHOLESTEROL RISK RATIO 4.59 (<5); CREATININE FOR GFR 0.63 MG/DL (0.55-1.30); FREE T4 1.48 NG/DL (0.89-1.76); GLOMERULAR FILTRATION RATE > 60.0 (>39); GLUCOSE, FASTING 103 MG/DL (74-106); HDL CHOLESTEROL 53.5 MG/DL (>40); LDL CHOLESTEROL 125.5 MG/DL (<100); NON-HDL-C 192.5 MG/DL; POTASSIUM SERUM 4.5 MMOL/L (3.5-5.1); SODIUM LEVEL 141 MMOL/L (136-145); THYROID STIMULATING HORMONE 1.965 uIU/ML (0.55-4.78); TOTAL PROTEIN 6.3 G/DL (5.7-8.2); TRIGLYCERIDES LEVEL 335 MG/DL (<150)
== END ==
LOC: M PLALAB 09:01
PROVIDERS: ATTEND Student in an Organized Health Care Education/Training Program
DX: E11.39 Type 2 diabetes mellitus with other diabetic ophthalmic complication (principal); G47.33 Obstructive sleep apnea (adult) (pediatric); E78.2 Mixed hyperlipidemia; E06.3 Autoimmune thyroiditis

== ENCOUNTER → 2024-01-13 | Outpatient (CLI) | payer OTHER, MEDICAID | LOC: M LAB 14:35 | PROVIDERS: ATTEND Physician Assistant | DX: R21 Rash and other nonspecific skin eruption (principal) ==

== ENCOUNTER → 2024-03-05 | Outpatient (CLI) | payer OTHER, MEDICAID | LOC: M WHC 11:11 | PROVIDERS: ATTEND Student in an Organized Health Care Education/Training Program | DX: Z12.31 Encounter for screening mammogram for malignant neoplasm of breast (principal) ==

== ENCOUNTER → 2024-04-09 | Outpatient (REF) | payer OTHER, MEDICAID ==
[~2024-04-09] MED LIST changes: +OMEG-28; -OMEG1CAP85
== END ==
LOC: M SFHCPLAZ 18:37
PROVIDERS: ATTEND Family Medicine
DX: E11.65 Type 2 diabetes mellitus with hyperglycemia (principal)

== ENCOUNTER → 2024-04-11 | Outpatient (REF) | payer MEDICARE, OTHER, MEDICAID | LOC: M SFHCPLAZ 21:32 | PROVIDERS: ATTEND Family Medicine | DX: E11.65 Type 2 diabetes mellitus with hyperglycemia (principal) ==

== ENCOUNTER → 2024-04-14 | Outpatient (REF) | payer MEDICARE, OTHER, MEDICAID | LOC: M SFHCDERM 12:56 | PROVIDERS: ATTEND Physician Assistant | DX: L30.9 Dermatitis, unspecified (principal) ==

== ENCOUNTER → 2024-04-20 | Outpatient (CLI) | payer OTHER, MEDICAID ==
[2024-04-20 13:41] LABS: HEMOGLOBIN A1c 6.7 % (4.0-6.0)
[2024-04-22 18:47] LABS: ANA SCREEN, IFA NEGATIVE (NEGATIVE)
== END ==
LOC: M PLALAB 10:43
DX: E11.65 Type 2 diabetes mellitus with hyperglycemia (principal)

== ENCOUNTER → 2024-12-30 | Outpatient (CLI) | payer OTHER, MEDICAID ==
[2024-12-30 14:37] LABS: HEMATOCRIT 43.9 % (36.0-47.0); HEMOGLOBIN 14.3 g/dl (12.0-15.5); MEAN CORPUSCULAR HEMOGLOBIN 29.9 pg (27.0-33.0); MEAN CORPUSCULAR HGB CONC 32.6 g/dl (32.0-36.5); MEAN CORPUSCULAR VOLUME 91.8 fl (80.0-96.0); PLATELET COUNT, AUTOMATED 249 10^3/uL (150-450); RED BLOOD COUNT 4.78 10^6/uL (4.00-5.40)
[2024-12-30 14:58] LABS: HEMOGLOBIN A1c 7.6 % (4.0-6.0)
[2024-12-30 15:06] LABS: THYROID STIMULATING HORMONE 0.494 uIU/ML (0.55-4.78)
[2024-12-30 15:08] LABS: FREE T4 1.97 NG/DL (0.89-1.76)
[2024-12-30 15:12] LABS: ALBUMIN 3.7 G/DL (3.2-5.2); ALKALINE PHOSPHATASE 76 U/L (35-104); ALT/SGPT 42 U/L (7.0-40); AST/SGOT 30 U/L (<34); BILIRUBIN,TOTAL 0.3 MG/DL (0.3-1.2); BLOOD UREA NITROGEN 19 MG/DL (9-23); CALCIUM LEVEL 10.2 MG/DL (8.3-10.6); CARBON DIOXIDE LEVEL 28 MMOL/L (20-31); CHLORIDE LEVEL 106 MMOL/L (98-107); CHOLESTEROL LEVEL 203 MG/DL (<200); CHOLESTEROL RISK RATIO 3.04 (<5); CREATININE FOR GFR 0.64 MG/DL (0.55-1.30); GLOMERULAR FILTRATION RATE > 90.0 (>39); GLUCOSE, FASTING 114 MG/DL (74-106); HDL CHOLESTEROL 66.6 MG/DL (>40); LDL CHOLESTEROL 89.8 MG/DL (<100); NON-HDL-C 136.4 MG/DL; POTASSIUM SERUM 4.6 MMOL/L (3.5-5.1); SODIUM LEVEL 139 MMOL/L (136-145); TOTAL PROTEIN 6.8 G/DL (5.7-8.2); TRIGLYCERIDES LEVEL 233 MG/DL (<150)
== END ==
LOC: M PLALAB 10:19
PROVIDERS: ATTEND Student in an Organized Health Care Education/Training Program
DX: I10 Essential (primary) hypertension (principal); E11.36 Type 2 diabetes mellitus with diabetic cataract; E03.9 Hypothyroidism, unspecified; E78.2 Mixed hyperlipidemia

== ENCOUNTER → 2025-03-31 | Outpatient (CLI) | payer OTHER ==
[~2025-03-31] MED LIST changes: +PROHANCE 279.3MG/ML 15ML VIAL ONE; +PROHANCE 279.3MG/ML 5ML VIAL ONE
== END ==
LOC: M PLAIMG 09:11
PROVIDERS: ATTEND Physician Assistant Medical
DX: M47.816 Spondylosis without myelopathy or radiculopathy, lumbar region (principal); M48.061 Spinal stenosis, lumbar region without neurogenic claudication; M48.07 Spinal stenosis, lumbosacral region; M47.817 Spondylosis without myelopathy or radiculopathy, lumbosacral region
CPT/HCPCS: 72158; A9576

== ENCOUNTER → 2025-05-19 | Outpatient (CLI) | payer OTHER ==
[~2025-05-19] MED LIST changes: -PROHANCE 279.3MG/ML 15ML VIAL ONE; -PROHANCE 279.3MG/ML 5ML VIAL ONE
[2025-05-19 11:28] LABS: ESTIMATED AVERAGE GLUCOSE 146.0 MG/DL (60-110)
[2025-05-19 11:53] LABS: ALT/SGPT 33.0 U/L (7.0-40); AST/SGOT 33.0 U/L (<34); CHOLESTEROL LEVEL 195.0 MG/DL (<200); CHOLESTEROL RISK RATIO 3.56 (<5); LDL CHOLESTEROL 94.3 MG/DL (<100); NON-HDL-C 140.3 MG/DL; TRIGLYCERIDES LEVEL 230.0 MG/DL (<150)
== END ==
LOC: M PLALAB 09:00
PROVIDERS: ATTEND Internal Medicine Cardiovascular Disease
DX: E78.2 Mixed hyperlipidemia (principal); G47.33 Obstructive sleep apnea (adult) (pediatric); I10 Essential (primary) hypertension; E11.9 Type 2 diabetes mellitus without complications

== ENCOUNTER → 2025-05-19 | Outpatient (CLI) | payer OTHER ==
[2025-05-19 11:28] LABS: ESTIMATED AVERAGE GLUCOSE 146.0 MG/DL (60-110)
== END ==
LOC: M PLALAB 08:57
DX: E11.9 Type 2 diabetes mellitus without complications (principal)

== ENCOUNTER → 2025-08-29 | Outpatient (REF) | payer OTHER, MEDICAID | LOC: M SFHCPLAZ 09:29 | PROVIDERS: ATTEND Student in an Organized Health Care Education/Training Program | DX: Z53.9 Procedure and treatment not carried out, unspecified reason (principal) ==